=== PATIENT | male | born 1990 | race Caucasian/White ===

== ENCOUNTER 2018-08-13 14:11 | Emergency (ER) | payer MEDICAID ==
[~2018-08-13] VITALS: Ht 170.2 cm; Wt 70.5 kg
[2018-08-13 14:37] VITALS: BP 148/95
== END 2018-08-13 14:43 | disposition home or self-care (01) ==
LOC: ER 14:12
DX: F11.10 Opioid abuse, uncomplicated (principal); R11.2 Nausea with vomiting, unspecified; R19.7 Diarrhea, unspecified
CPT/HCPCS: 99281

== ENCOUNTER 2018-08-15 21:55 | Emergency (ER) | payer MEDICAID ==
[~2018-08-15] VITALS: Ht 170.2 cm; Wt 72.0 kg
[2018-08-16] MEDS ORDERED: phenobarbital inj 260 MG in normal saline 100ml IV soln 99 ML IV STA (00:18)
[2018-08-16] MEDS ORDERED: normal saline 1000ML IV soln IVB ONE (00:20)
[2018-08-16] MEDS: magnesium oxide 400mg tablet PO ONE ×2 (00:20→01:02)
[2018-08-16] MEDS: thiamine 100mg tablet PO ONE ×2 (00:20→01:01)
[2018-08-16] MEDS ORDERED: ondansetron/PF 4mg/2ml inj IV ONE (00:20)
[2018-08-16] MEDS ORDERED: LORazepam 2 mg/ml vial ONE ×2 (01:03→01:06)
[2018-08-16 01:04] LABS: ALANINE AMINOTRANSFERASE 44 U/L (12-78); ALBUMIN 4.1 G/DL (3.4-5.0); ALBUMIN/GLOBULIN RATIO 1.1 (1.1-1.5); ALKALINE PHOSPHATASE 56 IU/L (46-116); ANION GAP 9 (8-16); ASPARTATE AMINO TRANSFERASE 17 U/L (10-37); BILIRUBIN,TOTAL 0.2 MG/DL (0.1-1.0); BLOOD UREA NITROGEN 14 MG/DL (7-18); BUN/CREATININE RATIO 17.5 (5.4-32.0); CALCIUM 8.9 MG/DL (8.5-10.1); CHLORIDE 102 MMOL/L (99-107); ETHANOL < 0.010 GM/DL (0.0-0.010); GLUCOSE 138 MG/DL (70-104); POTASSIUM 3.8 MMOL/L (3.5-5.1); SODIUM 138 MMOL/L (135-145); TOTAL CARBON DIOXIDE 26.8 MMOL/L (24-32); TOTAL PROTEIN 7.9 G/DL (6.4-8.2); eGFR > 90 ML/MIN
[2018-08-16] MEDS ORDERED: LORazepam 2 mg/ml vial IV ONE (01:10)
--- NOTE | 2018-08-16 01:24 | NUR ---
Patient had what appeared to tonic clonic seizure movment. Dr. Andrews informed. Verbal order for 2mg Ativan x2.
[2018-08-16 01:41] LABS: BASOPHILS % (AUTO) 0.4 % (0-1); EOSINOPHILS # (AUTO) 0.1 X10'3 (0-0.9); EOSINOPHILS % (AUTO) 1.7 % (0-6); HEMOGLOBIN 15.4 g/dl (14.0-17.9); LYMPHOCYTES # (AUTO) 1.6 X10'3 (1.1-4.8); MEAN CORPUSCULAR HEMOGLOBIN 28.8 PG (27.0-31.0); MEAN CORPUSCULAR HGB CONC 32.8 % (33.0-36.5); MEAN CORPUSCULAR VOLUME 87.7 FL (78-98); MEAN PLATELET VOLUME 8.5 FL (7.4-10.4); MONOCYTES # (AUTO) 0.4 X10'3 (0-0.9); MONOCYTES % (AUTO) 4.9 % (2-12); NEUTROPHILS # (AUTO) 6.6 X10'3 (1.8-7.7); PLATELET COUNT 296 X10'3 (140-440); RED BLOOD COUNT 5.36 X10'6 (4.70-6.10); RED CELL DISTRIBUTION WIDTH 13.4 % (11.5-14.5); WHITE BLOOD COUNT 8.7 X10'3 (4.5-11.0)
[2018-08-16 02:16] LABS: URINE AMPHETAMINE SCREEN NEGATIVE (Neg); URINE BARBITUATE SCREEN NEGATIVE (Neg); URINE BENZODIAZEPINES SCREEN NEGATIVE (Neg); URINE CANNABINOID SCREEN NEGATIVE (Neg); URINE COCAINE SCREEN NEGATIVE (Neg); URINE METHADONE SCREEN NEGATIVE (Neg); URINE OPIATE SCREEN NEGATIVE (Neg); URINE PHENCYCLIDINE SCREEN NEGATIVE (Neg)
[2018-08-16 05:02] VITALS: BP 127/64
== END 2018-08-16 05:36 | disposition home or self-care (01) ==
LOC: ER 21:56
DX: F10.239 Alcohol dependence with withdrawal, unspecified (principal); G40.89 Other seizures; F11.23 Opioid dependence with withdrawal; Y90.9 Presence of alcohol in blood, level not specified
CPT/HCPCS: 36415; 80053; 80305; 80320; 83735; 85025; 93005; 96365; 96366; 96375; 99284; J2060; J2405; J2560; J7030

== ENCOUNTER 2018-09-20 14:27 | Emergency (ER) | payer MEDICAID ==
[~2018-09-20] VITALS: Ht 172.7 cm; Wt 72.7 kg
[2018-09-20 14:34] VITALS: BP 139/97
[2018-09-20] MEDS ORDERED: CAT2P TD ×2 (15:11→15:12)
[2018-09-20] MEDS ORDERED: CHLO25CA10 PO (15:11)
[2018-09-20] MEDS ORDERED: ONDA4TAB6 PO (15:11)
== END 2018-09-20 15:18 | disposition home or self-care (01) ==
LOC: ER 14:27
DX: F11.10 Opioid abuse, uncomplicated (principal); F10.10 Alcohol abuse, uncomplicated; Z02.89 Encounter for other administrative examinations; Y90.9 Presence of alcohol in blood, level not specified
CPT/HCPCS: 99283